=== PATIENT | male | born 1965 | race Caucasian/White ===

== ENCOUNTER → 2018-12-03 13:57 | Outpatient (CLI) | payer BC | END | disposition home or self-care (01) | LOC: D.LABREF 13:57 | PROVIDERS: ATTEND Otolaryngology | DX: H92.01 Otalgia, right ear (principal) ==

== ENCOUNTER 2019-02-06 07:28 | Day surgery (SDC) | payer BC ==
[~2019-02-06] VITALS: Ht 180.3 cm; Wt 79.4 kg
[2019-02-06 08:25] VITALS: BP 145/90; Ht 180.3 cm; Wt 79.4 kg
--- NOTE | 2019-02-06 13:38 | NUR ---
1330 SAO2 DROPS ON ROOM AIR 88%. OXYGEN 2 LITERS PER NASAL CANULA RESTARTED.
--- NOTE | 2019-02-06 17:14 | NUR ---
1445-DISCHARGE CRITERIA MET. REMOVED IV WITH CATH INTACT,DISPOSED INTO SHARPS,COVERED SITE WITH BANDAID. REVIEWED POST OPERATIVE INSTRUCTIONS WITH PT.VERBALIZED UNDERSTANDING. ESCORTED OUT AW/C WITH BROTHER AWAITING TO DRIVE HOME
--- NOTE | 2019-03-09 09:05 | OP ---
PATIENT NAME: BAYLEE SUAZO MEDICAL RECORD: [id number] :63 LOCATION:[facility] ADMISSION DATE: SURGEON: TERRANCE MONSIVAIS MD DATE OF OPERATION: 02/06/2019 PREOPERATIVE DIAGNOSIS: Right pinna perichondritis and abscess. POSTOPERATIVE DIAGNOSIS: Right pinna perichondritis and abscess. PROCEDURE: Incision, drainage and debridement of right superior pinna. SURGEON: Terrance Monsivais MD ANESTHESIA: General LMA. COMPLICATIONS: None. DISPOSITION: Recovery stable. BLOOD LOSS: Less than 5 cc. SPECIMENS: Cultures and path specimen. PROCEDURE IN DETAIL: He was brought to the operating room and placed in supine position, sedated and intubated by anesthesia. Head was turned to the left. The right ear, ear canal and face was prepped and draped in the usual sterile fashion. An area was marked along basically the root of the antihelix. All the skin of the upper pinna except for the helix itself was thickened and red. There was a drainage tract at the inferior portion of the triangular fossa. An ellipse was made around that, excising that, had been injected with some methylene blue with a blunt plastic needle tip, so that was out. A freer was used to elevate the skin superiorly and inferiorly, exposing most of the cartilage of the superior ear out to the helix and down to the conchal bowl. The perichondrium in the central area there was friable and had a velvety appearance. Around the fistula tract, the cartilage was a yellowish color. A freer and scissors were used to remove and peel off all the abnormal appearing perichondrium. This was sent for path. Then, incisions were made with scissors around the yellow appearing cartilage to remove that deep into the triangular fossa as well as inferiorly portion of the root of the antihelix and towards the conchal bowl, this was removed, everything with any blue, even close to it. The yellow cartilage, the perichondrium that was usual was all removed. There was no local injected into the ear. There was a little bit of bleeding from the skin edges, but by the end of the procedure that was all resolved. The ear was irrigated with saline with Ancef repeatedly, I cleaned that out. All the cartilage looked nice and clean. The skin edges were cleaned. There was no evidence of any infection or drainage. All that was cleared up. Then, because of vast after undermining, it was easy to approximate the skin edges. This was closed with 4-0 interrupted Vicryl loosely so there could be some drainage if needed and then it was packed with mupirocin and a cotton ball to maintain the shape of the pinna and then some mild pressure dressing was applied. He was awakened, extubated, and transported to recovery in good condition. No complications. TRANSINT:[id number] Voice Confirmation ID: [id number] DOCUMENT ID: [id number] OPERATIVE REPORT [id number] BAYLEE SUAZO, TERRANCE PEREZ at 0905 CC: [id number] DICTATION DATE: 02/06/19 1324 [employer] CELL[employer] MACHINE: 02/06/19 1358 [facility] 02/06/19 [id number] [place] [address]
--- NOTE | 2019-03-09 09:05 | HP ---
PATIENT: BAYLEE PALACIOS MEDICAL RECORD: [id number] ACCOUNT: [id number] [facility]ATION:[facility] : 63 ADMISSION DATE: 02/06/19 PCP: BRITTNEY JACOBS MD HISTORY AND PHYSICAL EXAMINATION HISTORY: Mr. Palacios is a 53-year-old male with a history of right perichondritis. He may have had a previous abscess drained there, but he has a fistula tract, possibly an abscess, thickening of the superior pinna, obliteration of the triangular fossa and portion of the scaphoid fossa. He is being admitted for incision and drainage, debridement of right pinna abscess. PAST MEDICAL HISTORY: Otherwise negative. CURRENT MEDICATIONS: None. ALLERGIES: PENICILLIN. PHYSICAL EXAMINATION: GENERAL: Healthy appearing. FACE: Normal, symmetric, no lesions. EYES: Sclerae and conjunctivae are normal. EARS: Right pinna is involved. It has got fistula tract draining, just inferior portion of the triangular fossa and thickening of the pinna above that. The helix itself is fine. It was just the central pinna that is affected. The posterior area of the ear is normal as well. Canal and TM are normal. NOSE: No mass, polyps or drainage. ORAL CAVITY AND OROPHARYNX: Normal. NECK: No masses. No adenopathy. CHEST: Clear. CARDIOVASCULAR: Regular rate and rhythm. No murmur. EXTREMITIES: Normal. IMPRESSION: Infection and abscess of right pinna. PLAN: Incision and drainage and debridement of the right ear. TRANSINT:[id number] Voice Confirmation ID: [id number] DOCUMENT ID: [id number] YENNY LYNN MD at 0905 CC: [id number] DICTATION DATE: 02/05/19 1028 STAIN APPLICATOR: 02/05/19 1103 [facility] 02/06/19 [place] [address]
== END 2019-02-06 14:45 | disposition home or self-care (01) ==
LOC: D.OPS 07:28 → D.PAN 11:00 → D.OPS 11:00
PROVIDERS: ATTEND Otolaryngology
DX: H61.001 Unspecified perichondritis of right external ear (principal); H60.01 Abscess of right external ear

== ENCOUNTER → 2019-02-20 12:43 | Outpatient (CLI) | payer BC ==
[2019-02-06 08:25] VITALS: BMI 24.4
== END | disposition home or self-care (01) ==
LOC: D.LABREF 12:43
PROVIDERS: ATTEND Otolaryngology
DX: H61.001 Unspecified perichondritis of right external ear (principal)